=== PATIENT | male | born 1970 | race Caucasian/White ===

== ENCOUNTER 2016-09-04 08:09 | Emergency (ER) | payer OTHER ==
--- NOTE | 2016-09-04 08:12 | UCPHY ---
H & P Patient Type: Established HPI/ROS: Chief complaint: Right ear pain HPI: 46-year-old male presenting with 1 week of viral upper respiratory type of symptoms. Patient states that he started developing right ear pain yesterday which became severe. This morning he woke up with some discharge from his ear which was a little bit bloody. He has continued to have severe right ear pain. No fevers or chills. He did have some nasal congestion which has since improved. No sore throat. Mild headache. No nausea or vomiting. ROS: 10 point Review of Systems is negative except as noted in the HPI. Past medical history: None Medications: None Allergies: No known drug allergies Social history: Nonsmoker Physical exam: General: Awake, alert, uncomfortable appearing HEENT: Ears: His right tympanic membrane is erythematous and bulging and has a purulent effusion. There is a scant amount of clear serous liquid in the canal without significant erythema. There is no purulent discharge in the external auditory canal. There is minimal pain with the movement of his pinna, no mastoid tenderness. Neck: Supple, full range of motion without pain Skin: No rash - Medical/Surgical History Hx Asthma: No Hx Chronic Respiratory Disease: No Hx Diabetes: No Hx Cardiac Disease: No Hx Renal Disease: No Hx Cirrhosis: No Hx Alcoholism: No Hx HIV/AIDS: No Hx Splenectomy or Spleen Trauma: No Other PMH: DENIES HEALTH PROBLEMS - Family History Significant Family History: No pertinent family hx - Social History Smoking Status: Never smoked Constitutional: Initial Vital Signs Temperature (C) 37 C 09/04/16 08:24 Heart Rate 99 09/04/16 08:24 Respiratory Rate 20 09/04/16 08:24 Blood Pressure 125/93 H 09/04/16 08:24 O2 Sat (%) 94 09/04/16 08:24 O2 Delivery Mode Room Air Allergies/Adverse Reactions: No Known Allergies Allergy (Verified 09/04/16 08:24) Home Medications: Medication Instructions Recorded Amoxicillin/Clavulanate Pot 875 mg PO BID #20 tab 09/04/16 [Augmentin 875 MG TAB (*)] Medical Decision Making ED Course/Re-evaluation: 46-year-old male presenting with an acute right otitis media. He has a transudate from his otitis but no evidence of perforation at this time. Will treat with altered mental 10. I have the put in topical analgesia a of bupivacaine and lidocaine drops in his ear with some relief. He will be sent home with prescription for Augmentin and a to go pack of hydrocodone with acetaminophen. He will follow up with primary care physician in 3-4 days for re -evaluation, return for worsening. - Data Points Medications Given: Discontinued Medications Amoxicillin/Clavulanate Potassium (Augmentin 875mg) 875 mg PO EDNOW ONE PRN Reason: Protocol Stop: 09/04/16 08:47 Last Admin: 09/04/16 08:54 Dose: Not Given Amoxicillin/Clavulanate Potassium (Augmentin 875mg) 875 mg PO EDNOW ONE PRN Reason: Protocol Stop: 09/04/16 08:51 Last Admin: 09/04/16 08:54 Dose: 875 mg Departure - Departure Disposition: Home, Routine, Self-Care Clinical Impression: Otitis media Condition: Good Instructions: Otitis Media (ED) Additional Instructions: Follow up with primary care physician in 3-4 days for re-evaluation. Return to the Urgent Care emergency department for increasing pain, fevers, chills, increasing discharge from ear, or any other concerns. Referrals: Adrian Roblero MD [Primary Care Provider] - As per Instructions Prescriptions: Amoxicillin/Clavulanate Pot [Augmentin 875 MG TAB (*)] 875 mg PO BID #20 tab - PQRS PQRS Measurement: NA
[2016-09-04 08:26] VITALS: RESP 20; TEMP 98.6
[2016-09-04] MEDS ORDERED: PHENYLEPHRINE 0.25% NASAL 15 ML SPRAY ONE (08:36)
[2016-09-04] MEDS ORDERED: AMOXICILLIN/CLAVULANATE POT 875/125 MG TAB PO ONE ×2 (08:46→08:50)
[2016-09-04] MEDS ORDERED: HYDROCOD/APAP 5/325 PREPACK#6 BTL TAKEHOME ONE (08:54)
[2016-09-04 08:58] VITALS: BP 122/64; PULSE 81; O2SAT 96
== END 2016-09-04 09:02 | disposition home or self-care (01) ==
LOC: CED 08:09
DX: H66.91 Otitis media, unspecified, right ear (principal)
CPT/HCPCS: 99214-PO; G0463-PO